=== PATIENT | female | born 1965 | race American Indian/Alaskan Native ===

== ENCOUNTER 2018-10-01 09:19 | Emergency (ER) | payer SELFPAY ==
[2018-10-01] MEDS ORDERED: NACL 0.9% 1000 ML 1,000 ML IV ONE (09:30)
[2018-10-01] MEDS ORDERED: ANTIVERT PO ONE (10:12)
[2018-10-01] MEDS ORDERED: ZOFRAN IM ONE (10:12)
--- NOTE | 2018-10-01 10:16 | Emergency Department Report ---
ED General Adult HPI - General Chief complaint: Nausea/Vomiting/Diarrhea Stated complaint: HBP/VOMIT Time Seen by Provider: 10/01/18 10:07 Source: patient Mode of arrival: Ambulatory Limitations: No Limitations - History of Present Illness Initial comments: Patient is 52 years old female with no significant past medical history. Patient presented to the ER complaining of dizziness, nausea and vomiting since yesterday. Patient stated that she ate a fried chicken with gravy at [employer] yesterday and a soreness to get home she started having severe nausea and vomiting and became very dizzy after that. Patient stated that she woke up this morning and she isn't allergic to blood draws and she vomited back. Patient denied any abdominal pain, diarrhea, chest pain, shortness of breath, headache. Patient also denied any weakness, numbness or tingling sensation. - Related Data Allergies Allergy/AdvReac Type Severity Reaction Status Date / Time No Known Allergies Allergy Verified 10/01/18 09:21 ED Review of Systems ROS: Stated complaint: HBP/VOMIT Other details as noted in HPI Comment: All other systems reviewed and negative Constitutional: denies: chills, fever Respiratory: denies: cough, orthopnea, shortness of breath, SOB with exertion, SOB at rest Cardiovascular: denies: chest pain, palpitations, dyspnea on exertion Gastrointestinal: nausea, vomiting. denies: abdominal pain, diarrhea, constipation, hematemesis, melena, hematochezia Musculoskeletal: denies: back pain Neurological: denies: headache, weakness, numbness, paresthesias, confusion, abnormal gait ED Past Medical Hx - Past Medical History Previous Medical History?: No - Surgical History Past Surgical History?: No - Social History Smoking Status: Never Smoker Substance Use Type: None ED Physical Exam - General Limitations: No Limitations General appearance: alert, in no apparent distress - Head Head exam: Present: atraumatic, normocephalic, normal inspection - Eye Eye exam: Present: normal appearance, PERRL - ENT ENT exam: Present: normal exam, normal orophraynx, mucous membranes moist - Neck Neck exam: Present: normal inspection, full ROM. Absent: tenderness, meningismus, lymphadenopathy, thyromegaly - Respiratory Respiratory exam: Present: normal lung sounds bilaterally. Absent: respiratory distress, wheezes, rales, rhonchi, stridor, chest wall tenderness, accessory muscle use, decreased breath sounds, prolonged expiratory - Cardiovascular Cardiovascular Exam: Present: regular rate, normal rhythm, normal heart sounds - GI/Abdominal GI/Abdominal exam: Present: soft, normal bowel sounds. Absent: distended, tenderness, guarding, rebound, rigid, organomegaly, mass, bruit, pulsatile mass - Extremities Exam Extremities exam: Present: normal inspection, full ROM, normal capillary refill - Back Exam Back exam: Present: normal inspection, full ROM. Absent: CVA tenderness (R), CVA tenderness (L), muscle spasm, paraspinal tenderness, vertebral tenderness - Neurological Exam Neurological exam: Present: alert, oriented X3, CN II-XII intact, normal gait, reflexes normal - Skin Skin exam: Present: warm, intact, normal color ED Course Vital Signs 10/01/18 09:27 Temperature 97.9 F Pulse Rate 70 Respiratory 18 Rate Blood Pressure 168/90 O2 Sat by Pulse 99 Oximetry ED Medical Decision Making - Lab Data Result diagrams: 10/01/18 10:54 10/01/18 10:54 - Radiology Data Radiology results: report reviewed Referring Physician: SUSANNE ANTOINE Patient Name: JOSUE VELIZ Date of : 1965 Sex: Female Report Date: 2018-10-01 Report Status: Finalized Findings [place] [id number] Cat Scan Report Signed Patient: JOSUE VELIZ MR# : [id number] : 1965 Acct:[id number] Age/Sex: 52 / F ADM Date: 10/01/18 Loc: ED Attending Dr: Ordering Physician: SUSANNE ANTOINE Date of Service: 10/01/18 Procedure(s): CT head/brain wo con Accession Number(s): [id number] cc: SUSANNE ANTOINE CT HEAD WITHOUT CONTRAST: HISTORY: Dizziness. TECHNIQUE: Sequential 2.5mm CT images. COMPARISON: none. FINDINGS: Cerebral Parenchyma: Within normal limits. Cerebellum: Within normal limits. Brainstem: Within normal limits. Ventricles: Normal. Sella: Normal. Extra-axial spaces: Normal. Basal Cisterns: Normal. Intracranial Hemorrhage: None. Midline Shift: None. Calvarium: Normal. Chronic right medial orbital wall fracture is noted. Sinuses: Normal. Mastoid Air Cells: Normal. Visualized Orbits: Normal. IMPRESSION: Cranial CT scan within normal limits. Transcribed By: TTR Dictated By: ZHANE ELDER JR, MD Electronically Authenticated By: ZHANE ELDER JR, MD Signed Date/Time: 10/01/181119 DD/ 19 TD/TT: 10/01/181119 - Medical Decision Making Patient stated that her symptoms status much better after Zofran and meclizine. Patient's CT brain is negative for acute findings. Labs reviewed and is negative for acute finding. I believe the patient either due to positional vertigo or due to food poisoning. I advised the patient to follow up with her primary care physician in the next 2-3 days and to return to the ER if her symptoms are not improved. Critical care attestation.: If time is entered above; I have spent that time in minutes in the direct care of this critically ill patient, excluding procedure time. ED Disposition Clinical Impression: Dizziness, Vomiting Disposition: DC-01 TO HOME OR SELFCARE Is pt being admited?: No Condition: Stable Instructions: Dizziness (ED), Acute Nausea and Vomiting (ED) Referrals: [facility] [Other] - 3-5 Days
[2018-10-01 11:05] LABS: Basophils % (Auto) 0.4 % (0.0-1.8); Eosinophils % (Auto) 0.7 % (0.0-4.3); Hematocrit 39.8 % (30.3-42.9); Hemoglobin 13.2 gm/dl (10.1-14.3); Lymphocytes # (Auto) 1.7 K/mm3 (1.2-5.4); Lymphocytes % (Auto) 30.5 % (13.4-35.0); Mean Corpuscular HGB Conc 33 % (30-34); Mean Corpuscular Volume 93 fl (79-97); Monocytes # (Auto) 0.4 K/mm3 (0.0-0.8); Platelet Count 286 K/mm3 (140-440)
--- NOTE | 2018-10-01 11:24 | Cat Scan Report ---
CT HEAD WITHOUT CONTRAST: HISTORY: Dizziness. TECHNIQUE: Sequential 2.5mm CT images. COMPARISON: none. FINDINGS: Cerebral Parenchyma: Within normal limits. Cerebellum: Within normal limits. Brainstem: Within normal limits. Ventricles: Normal. Sella: Normal. Extra-axial spaces: Normal. Basal Cisterns: Normal. Intracranial Hemorrhage: None. Midline Shift: None. Calvarium: Normal. Chronic right medial orbital wall fracture is noted. Sinuses: Normal. Mastoid Air Cells: Normal. Visualized Orbits: Normal. IMPRESSION: Cranial CT scan within normal limits.
[2018-10-01 11:29] LABS: Alanine Aminotransferase 29 units/L (7-56); Albumin 3.8 g/dL (3.9-5); BUN/Creatinine Ratio 8; Blood Urea Nitrogen 8 mg/dL (7-17); Calcium 9.3 mg/dL (8.4-10.2); Hemolysis Index 6
[2018-10-01 11:53] VITALS: BP 160/90
== END 2018-10-01 11:52 | disposition home or self-care (01) ==
LOC: ED 09:19
DX: R42 Dizziness and giddiness (principal); R11.2 Nausea with vomiting, unspecified
CPT/HCPCS: 36415; 70450; 80053; 85025; 96372; 99284; J2405